=== PATIENT | male | born 1990 | race Caucasian/White ===

== ENCOUNTER 2020-05-25 13:45 | Emergency (ER) | payer OTHER ==
[2020-05-25 13:51] VITALS: BP 165/62; PULSE 69; RESP 18; TEMP 98.2
[2020-05-25] MEDS ORDERED: ACET/COD 300 MG/30 MG STARTER PACK 6 TAB BTL PO STA (14:19)
[2020-05-25] MEDS ORDERED: KETOROLAC 15 MG/ML 1 ML VIAL IM STA (14:19)
[2020-05-25] MEDS ORDERED: CLINDAMYCIN 150 MG CAP PO STA (14:19)
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
== END 2020-05-25 14:42 | disposition home or self-care (01) ==
LOC: EC 13:45
DX: K08.89 Other specified disorders of teeth and supporting structures (principal); F17.200 Nicotine dependence, unspecified, uncomplicated; Z88.0 Allergy status to penicillin; Z91.048 Other nonmedicinal substance allergy status; Z88.5 Allergy status to narcotic agent; Z88.2 Allergy status to sulfonamides; Z88.8 Allergy status to other drugs, medicaments and biological substances
CPT/HCPCS: 99283; 96372; J1885

== ENCOUNTER 2020-11-14 20:15 | Emergency (ER) | payer OTHER ==
[2020-11-14 20:38] VITALS: BP 136/85; PULSE 76; RESP 18; TEMP 97.6
[2020-11-14] MEDS ORDERED: KETOROLAC 15 MG/ML 1 ML VIAL IM STA (20:46)
--- NOTE | 2020-11-14 20:49 | ED ---
General Adult HPI - General Stated complaint: Ear pain Source: patient Mode of arrival: ambulatory Limitations: no limitations - History of Present Illness Initial comments: 30-year-old male presents to emergency from with a chief complaint of left ear pain. States his been ongoing for the past several months. States he went to his primary care physician who advised him that it was nothing in terms of infection with this UA. Patient reports she does not have any popping in the ear. He also reports some left-sided facial pain that has been ongoing along with a year. He does report minimal left sided facial swelling. Denies any sore throat. Denies any fevers or chills. Denies any difficulty breathing. - Related Data Previous Rx's Medication Instructions Recorded Ondansetron Odt [Zofran Odt] 4 mg PO Q6HR PRN #12 tab 01/06/14 Clindamycin [Cleocin] 450 mg PO Q8H 7 Days #63 cap 05/25/20 Ibuprofen [Motrin] 600 mg PO Q6HR PRN #20 tab 05/25/20 Cetirizine HCl [Zyrtec] 10 mg PO DAILY #14 tab 11/14/20 Clindamycin [Cleocin] 150 mg PO Q6H #40 capsule 11/14/20 Allergies Allergy/AdvReac Type Severity Reaction Status Date / Time amoxicillin Allergy Unknown Verified 11/14/20 20:38 iodine Allergy Rash/Hives Verified 11/14/20 20:38 morphine Allergy Rash/Hives Verified 11/14/20 20:38 Penicillins Allergy Rash/Hives Verified 11/14/20 20:38 phenobarbital Allergy Swelling Verified 11/14/20 20:38 Sulfa (Sulfonamide Allergy Unknown Verified 11/14/20 20:38 Antibiotics) Review of Systems ROS Statement: Those systems with pertinent positive or pertinent negative responses have been documented in the HPI. ROS Other: All systems not noted in ROS Statement are negative. Past Medical History Past Medical History: Asthma History of Any Multi-Drug Resistant Organisms: None Reported Past Surgical History: Appendectomy Additional Past Surgical History / Comment(s): facial surgery Past Psychological History: Bipolar Smoking Status: Current every day smoker Past Alcohol Use History: Rare Past Drug Use History: None Reported, Marijuana General Exam Limitations: no limitations General appearance: alert, in no apparent distress Head exam: Present: atraumatic, normocephalic, normal inspection Eye exam: Present: normal appearance, PERRL, EOMI Pupils: Present: normal accommodation ENT exam: Present: normal exam, mucous membranes moist, TM's normal bilaterally, normal external ear exam. Absent: normal oropharynx (tenderness over the left parotid gland. No pharyngeal findings.), other (No pain, erythema or swelling in the posterior auricular region.) Neck exam: Present: normal inspection, full ROM. Absent: tenderness Respiratory exam: Present: normal lung sounds bilaterally. Absent: respiratory distress Cardiovascular Exam: Present: regular rate, normal rhythm, normal heart sounds Extremities exam: Present: normal inspection, full ROM Back exam: Present: normal inspection, full ROM Neurological exam: Present: alert, oriented X3 Psychiatric exam: Present: normal affect, normal mood Skin exam: Present: warm, dry, intact, normal color Course Vital Signs 11/14/20 20:35 Temperature 97.6 F Pulse Rate 76 Respiratory 18 Rate Blood Pressure 136/85 O2 Sat by Pulse 99 Oximetry Medical Decision Making - Medical Decision Making 30-year-old male presents to the emergency department with chief complaint of ear pain. On physical examination, no signs of mastoiditis. No signs of otitis externa or media. However, he does have tenderness along the left parotid gland. Mild left-sided facial swelling. Intraoral examination is unremarkable. Although it is unlikely that this is parotitis, considering the patient has tenderness in the region. I will treat him with clindamycin. He does a penicillin ALLERGY. I advised him to follow-up with an ENT specialist. Also prescribed him Zyrtec. Strict return parameters were thoroughly discussed the patient is an ascending agreeable. Case discussed with physician. Disposition Clinical Impression: Left ear pain, Left facial pain Disposition: HOME SELF-CARE Condition: Stable Instructions (If sedation given, give patient instructions): Earache (ED) Additional Instructions: Follow-up with ENT specialist. Take medication as directed. Return to emergency department if symptoms worsen. Prescriptions: Clindamycin [Cleocin] 150 mg PO Q6H #40 capsule Cetirizine HCl [Zyrtec] 10 mg PO DAILY #14 tab Is patient prescribed a controlled substance at d/c from ED?: No Referrals: Abimbola Mederos MD [Primary Care Provider] - 1-2 days Camilo Ferraro MD [STAFF PHYSICIAN] - 1-2 days Time of Disposition: 20:50
== END 2020-11-14 21:07 | disposition home or self-care (01) ==
LOC: EC 20:15
DX: H92.02 Otalgia, left ear (principal); R51.9 Headache, unspecified; F12.90 Cannabis use, unspecified, uncomplicated; J45.909 Unspecified asthma, uncomplicated; F17.200 Nicotine dependence, unspecified, uncomplicated
CPT/HCPCS: 99283; 96372; J1885

== ENCOUNTER 2021-01-02 08:40 | Emergency (ER) | payer OTHER ==
[2021-01-02 08:48] VITALS: BP 139/83; PULSE 79; RESP 19; TEMP 97.8
--- NOTE | 2021-01-02 09:25 | ED ---
General Adult HPI - General Chief complaint: ENT Stated complaint: Ear Pain Time Seen by Provider: 01/02/21 09:02 Source: patient, family, RN notes reviewed Mode of arrival: ambulatory Limitations: no limitations - History of Present Illness Initial comments: Patient's a 30-year-old male presented to the emergency room today with a chief complaint of left-sided ear pain. He doesn't that he's been having issues of last 9 months. He's been seen here in the hospital for before. He states is not follow-up with ENT specialist. He has been seen by his family doctor. He was prescribed an oral antibiotic and finished over a week ago. He states he still having some congestion. Does suffer from seasonal ALLERGIES. Patient does admit that this morning around 4 AM he went to blow his nose and he felt a popping sensation in the left ear. He doesn't that the last 3 days she's noticed some drainage coming from the left ear. He states it feels like there is "whacked" in his ear. He denies any other complaints or any other symptoms at this time. - Related Data Previous Rx's Medication Instructions Recorded Ondansetron Odt [Zofran Odt] 4 mg PO Q6HR PRN #12 tab 01/06/14 Clindamycin [Cleocin] 450 mg PO Q8H 7 Days #63 cap 05/25/20 Ibuprofen [Motrin] 600 mg PO Q6HR PRN #20 tab 05/25/20 Cetirizine HCl [Zyrtec] 10 mg PO DAILY #14 tab 11/14/20 Clindamycin [Cleocin] 150 mg PO Q6H #40 capsule 11/14/20 Azithromycin [Zithromax Z-pack (6 0 mg PO DIRECTED #6 tab 01/02/21 tabs)] Ibuprofen [Motrin] 600 mg PO Q6HR PRN #30 day 01/02/21 Ofloxacin 0.3% Otic Soln [Floxin 5 drops LEFT EAR BID 7 Days #5 ml 01/02/21 0.3% Otic Soln] Allergies Allergy/AdvReac Type Severity Reaction Status Date / Time amoxicillin Allergy Unknown Verified 01/02/21 08:48 iodine Allergy Rash/Hives Verified 01/02/21 08:48 morphine Allergy Rash/Hives Verified 01/02/21 08:48 Penicillins Allergy Rash/Hives Verified 01/02/21 08:48 phenobarbital Allergy Swelling Verified 01/02/21 08:48 Sulfa (Sulfonamide Allergy Unknown Verified 01/02/21 08:48 Antibiotics) Review of Systems ROS Statement: Those systems with pertinent positive or pertinent negative responses have been documented in the HPI. ROS Other: All systems not noted in ROS Statement are negative. Past Medical History Past Medical History: Asthma History of Any Multi-Drug Resistant Organisms: None Reported Past Surgical History: Appendectomy Additional Past Surgical History / Comment(s): facial surgery Past Psychological History: Bipolar Smoking Status: Current every day smoker Past Alcohol Use History: Rare Past Drug Use History: Marijuana General Exam - General Exam Comments Initial Comments: General: The patient is awake and alert, in no distress, and does not appear acutely ill. Eye: extra-ocular movements are intact. There is normal conjunctiva bilaterally. No signs of icterus. Ears, nose, mouth and throat: There are moist mucous membranes and no oral lesions. TM on the right is clear. Left auditory canal is inflamed. There is an area at the 10 o'clock position that is red irritated. There is no drainage currently. Difficult to see TM due to swelling. Neck: The neck is supple, there is no tenderness or JVD. Cardiovascular: There is a regular rate and rhythm. No murmur, rub or gallop is appreciated. Respiratory: respirations are non-labored. No wheezes, stridor. Musculoskeletal: Normal ROM, no tenderness. Neurological: A&O x 3. CN II-XII intact, There are no obvious motor or sensory deficits. Coordination appears grossly intact. Speech is normal. Skin: Skin is warm and dry and no rashes or lesions are noted. Psychiatric: Cooperative, appropriate mood & affect, normal judgment. Limitations: no limitations Course Vital Signs 01/02/21 08:45 Temperature 97.8 F Pulse Rate 79 Respiratory 19 Rate Blood Pressure 139/83 O2 Sat by Pulse 99 Oximetry Medical Decision Making - Medical Decision Making Patient will be placed on a oral antibiotic and drops to cover for both. Outer ear infections. He is advised to follow-up with ENT as she's been having difficulties with his ears for the last 9 months. Patient is advised to return for any other concerns. Disposition Clinical Impression: Otitis externa Disposition: HOME SELF-CARE Condition: Good Instructions (If sedation given, give patient instructions): Earache (ED) Additional Instructions: Please follow-up with ENT as discussed. Use antibiotics as prescribed. Prescriptions: Ofloxacin 0.3% Otic Soln [Floxin 0.3% Otic Soln] 5 drops LEFT EAR BID 7 Days #5 ml Ibuprofen [Motrin] 600 mg PO Q6HR PRN #30 day PRN Reason: Pain Azithromycin [Zithromax Z-pack (6 tabs)] 0 mg PO DIRECTED #6 tab Is patient prescribed a controlled substance at d/c from ED?: No Referrals: Abimbola Medreos MD [Primary Care Provider] - 1-2 days Camilo Ferraro MD [STAFF PHYSICIAN] - 1-2 days Time of Disposition: 09:31
== END 2021-01-02 09:39 | disposition home or self-care (01) ==
LOC: EC 08:40
DX: H60.92 Unspecified otitis externa, left ear (principal); J45.909 Unspecified asthma, uncomplicated; F17.200 Nicotine dependence, unspecified, uncomplicated; F12.90 Cannabis use, unspecified, uncomplicated; Z79.1 Long term (current) use of non-steroidal anti-inflammatories (NSAID); Z88.0 Allergy status to penicillin; Z88.2 Allergy status to sulfonamides; Z88.5 Allergy status to narcotic agent
CPT/HCPCS: 99282